=== PATIENT | female | born 1955 ===

== ENCOUNTER 2018-04-01 20:55 | Emergency (ER) | payer SELFPAY ==
[~2018-04-01] VITALS: Ht 157.5 cm; Wt 52.0 kg
[2018-04-01 21:34] VITALS: BP 135/68
== END 2018-04-01 23:45 | disposition left against medical advice (07) ==
LOC: ER 20:55
DX: J02.9 Acute pharyngitis, unspecified (principal)
CPT/HCPCS: 99283